=== PATIENT | male | born 1950 | race Caucasian/White ===

== ENCOUNTER 2022-07-31 22:29 | Emergency (ER) | payer MEDICARE, OTHER ==
[~2022-07-31] VITALS: Ht 180.3 cm; Wt 85.7 kg
[2022-07-31] MEDS ORDERED: IBUPROFEN 800 MG TABLET PO ONE (23:30)
[2022-07-31 23:50] LABS: CREATININE 1.2 mg/dL (0.6-1.3); POTASSIUM 4.6 mmol/L (3.5-5.1)
[2022-07-31 23:51] LABS: HEMATOCRIT 42.7 % (36.7-47.1); MEAN CORPUSCULAR HEMOGLOBIN 30.8 uug (23.8-33.4); MEAN CORPUSCULAR VOLUME 91.2 fL (73.0-96.2); PLATELET COUNT (AUTO) 243 K/uL (152-348)
[2022-07-31] MEDS ORDERED: IBUPROFEN 800 MG TABLET ONE (23:59)
[2022-08-01 00:54] VITALS: BP 128/79
[2022-08-01] MEDS ORDERED: IBUP-1957 PO (00:56)
--- NOTE | 2022-08-01 00:56 | NUR ---
Patient presented to the ER with complaints of Left ankle pain and swelling. Physician seen, labs and imaging completed, and medications given per order. Discharge packet and prescrition given and explained. Patient discharged; departed ambulatory.
[2022-08-01] MEDS ORDERED: IBUPROFEN 800 MG TABLET PO ONE (01:00)
== END 2022-08-01 01:05 | disposition home or self-care (01) ==
LOC: ER 23:03
DX: M79.672 Pain in left foot (principal); D72.829 Elevated white blood cell count, unspecified; R79.89 Other specified abnormal findings of blood chemistry
CPT/HCPCS: 36415; 73630; 84550; 85025; A4663